=== PATIENT | female | born 2000 | race Caucasian/White ===

== ENCOUNTER 2019-12-26 08:48 | Emergency (ER) | payer MEDICAID ==
[~2019-12-26] VITALS: Ht 160 cm; Wt 61.8 kg
[2019-12-26 08:51] VITALS: Ht 160 cm; Wt 61.8 kg
[2019-12-26] MEDS ORDERED: SEROQUEL50 MG (08:52)
[2019-12-26] MEDS ORDERED: BUSPAR10 MG (08:52)
[2019-12-26 09:39] LABS: BASOPHILS 0.6 % (0-2); EOSINOPHILS 1.7 % (0-7); HEMATOCRIT 45.5 % (36.0-48.0); HEMOGLOBIN 15.3 g/dL (12-16); IMMATURE GRANULOCYTES 0.1 % (0-5); MCH 33.3 pg (26.0-34.0); MCHC 33.6 g/dL (31.0-37.0); MCV 98.9 fL (80.0-100.0); MEAN PLATELET VOLUME 11.2 fL (7.4-10.4); MONOCYTES 7.3 % (2-11); NEUTROPHILS 65.3 % (40-80); PLATELET COUNT 263 10x3/uL (130-400); RDW 13.1 % (11.5-14.5)
[2019-12-26 09:46] LABS: CALC OSMOLALITY 266 mosm/kg (275-300); CALCIUM 9.4 mg/dL (8.5-10.1); CARBON DIOXIDE 25.1 mmol/L (21.0-32.0); CHLORIDE - SERUM 102 mmol/L (98-107); CREATININE - SERUM 0.7 mg/dL (0.6-1.3); GLUCOSE 99 mg/dL (74-106); POTASSIUM - SERUM 4.1 mmol/L (3.5-5.1); SODIUM 135 mmol/L (136-145); UREA NITROGEN 5 mg/dL (7-18); eGFR NON AFRICAN AMERICAN > 90 mL/min (90-120)
[2019-12-26 09:52] LABS: ALBUMIN 4.1 g/dL (3.4-5.0); ALKALINE PHOSPHATASE 104 U/L (30-120); ALT (SGPT) 18 U/L (10-68); AMYLASE - SERUM 57 U/L (25-115); LIPASE 85 U/L (73-393); PROTEIN - SERUM 7.9 g/dL (6.4-8.2)
[2019-12-26 09:52] LABS: BILIRUBIN NEGATIVE (NEGATIVE); KETONE NEGATIVE (NEGATIVE); NITRITE NEGATIVE (NEGATIVE); UROBILINOGEN NORMAL mg/dL (< 2)
[2019-12-26 09:54] LABS: WHITE CELLS - URINE 0-5 HPF (0-4)
[2019-12-26 09:55] LABS: AMORPHOUS SEDIMENT <1+ /lpf (NONE SEEN); BACTERIA FEW /HPF (NONE SEEN); HCG URINE NEGATIVE (NEGATIVE)
[2019-12-26] MEDS ORDERED: ZOFRAN4 MG PO (11:11)
[2019-12-26] MEDS ORDERED: CIPRO500 MG PO (11:13)
[2019-12-26 11:23] VITALS: BP 111/74
== END 2019-12-26 11:24 | disposition home or self-care (01) ==
LOC: D.ER 08:48
PROVIDERS: Family Medicine
DX: K52.9 Noninfective gastroenteritis and colitis, unspecified (principal); R10.9 Unspecified abdominal pain